=== PATIENT | female | born 1990 | race Caucasian/White ===

== ENCOUNTER 2024-03-14 22:23 | Emergency (ER) | payer BC, SELFPAY ==
[2024-03-14 22:24] VITALS: BMI 29.6
[2024-03-14 22:29] VITALS: BP 125/84
--- NOTE | 2024-03-14 23:33 | ED.GENMED ---
History of Present Illness
General
Chief Complaint: Headache
Source: patient
Exam Limitations: none
Time Seen by Provider: 03/14/24 22:48
History of Present Illness
History of Present Illness:
This is a 33 year old female that comes in with c/o headache. States that she was sick last Friday and had a slight fever. States that she feels it did not even brake 100. States that this continued into Friday. States that since that time she has
had a headache and it seemed to get worse on . States that it seemed to start like a sinus headache as it was in her teeth and cheek and the moved to her forehead. States that she just feels off. Denies any chills, chest pain, SOB, cough,
abd pain, nausea, vomiting, diarrhea, dizziness, urinary burning.
Past History
Past History
ED Past Medical History: None; Negative Asthma, HTN, Hypercholesterolemia or NIDDM
ED Past Surgical History: Other (Deviated septum. )
Social History
Tobacco: Non-smoker
Alcohol: Occasional
Personal:
Living: with family
Review of Systems
Review of Systems
All Other Systems: ROS reviewed and negative except as documented in HPI and ROS
Constitutional: Reports no symptoms; Denies fever (very low grade a week ago on Friday and Friday) or chills
EENT: Reports no symptoms
Respiratory: Reports no symptoms; Denies cough or trouble breathing
Cardiac: Reports no symptoms; Denies chest pain
ABD/GI: Reports no symptoms; Denies abdominal pain, nausea, vomiting or diarrhea
: Reports no symptoms; Denies dysuria, frequency or urgency
Musculoskeletal: Reports no symptoms
Skin: Reports no symptoms
Neurological: Reports headache; Denies dizzy
Psychiatric: Reports no symptoms
Phy Exam
General Physical Exam
General Presentation: mild distress
General age: appears stated age
General Skin: warm and dry
General Habitus: normal
General Mental: alert
General Hydration: appears well hydrated
ENT Exam
ENT Exam: TM's normal, pharynx normal and neck supple
Eye Exam
Eye Exam: EOMI
Cardiovascular Exam
Cardiovascular Exam: regular rate/rhythm, no edema, no murmur and normal peripheral pulses
Pulmonary Exam
Pulmonary Exam: lungs clear, no respiratory distress, no rales, chest non tender, no crackles, no rhonchi, no wheezing and no cough
Gastrointestinal Exam
Gastrointestinal Exam: normal bowel sounds, non tender, soft, no organomegaly, no pulsatile mass and non distended
Musculoskeletal Exam
Musculoskeletal Exam: full ROM and no edema
Skin Exam
Skin Exam: normal color, warm/dry, no rash and no petechia
Psychiatric Exam
Psychiatric Exam: normal mood/affect
Course
Orders/Labs/Results
Orders:
Orders
03/14/24 23:31
0.9% Sodium Chloride 1000 ml [Nss] 1,000 ml IV BOLUS
Acetaminophen [Tylenol] 1,000 mg PO NOW STA
Dexamethasone Sod Phosphate [Decadron] 20 mg IV NOW STA
Diphenhydramine [Benadryl] 25 mg IV NOW STA
Ketorolac [Toradol] 30 mg IV NOW STA
Prochlorperazine [Compazine] 5 mg IV NOW STA
03/14/24 23:32
Test Result ONCE
03/14/24 23:53
COVID-19 Antigen Urgent
Source: Nasal Swab
Complete Blood Count/With Diff Urgent
Comprehensive Metabolic Panel Urgent
HCG, Serum Qualitative Screen Urgent
03/15/24 00:03
CT Head W/o Iv Contrast Urgent
Reason For Exam: headache for a week
Abnormal Lab Results
03/14/24
23:53
RBC 3.59 L 10^6/uL
(4.20-5.40)
Hgb 11.8 L g/dL
(12.0-16.0)
Hct 33.1 L %
(37.0-47.0)
MCH 32.9 H pg
(27.0-31.0)
Abs Immat Gran (auto) 0.1 H 10^3/uL
(0-0.05)
Immature Gran % 1.1 H %
(0-0.5)
03/14/24 23:53
03/14/24 23:53
H/H slightly low, HCG negative. COVID negative.
Vital Signs
Initial and Last Documented VS:
Initial Vital Signs
Temp Pulse Resp BP Pulse Ox
98.5 F 82 16 125/84 97
03/14/24 22:29 03/14/24 22:29 03/14/24 22:29 03/14/24 22:29 03/14/24 22:29
Last Documented Vital Signs
Temp Pulse Resp BP Pulse Ox
98.5 F 68 16 124/86 99
03/14/24 22:29 03/15/24 00:46 03/15/24 00:46 03/15/24 00:46 03/15/24 00:46
MDM/Problems Addressed
Differential Diagnosis Includes:
Headache, Meningitis, COVID
MDM/Problems Addressed:
This is a 33 year old female that comes in with c/o headache. States that last Friday she started with a low grade fever which continued into Friday. States that the headache was dull and then on it seemed to increased. States that she
has had the headache ever since. States that this goes across her forehead.
Will check labs. CT head and medicate for pain.
Back into see patient. States that she is feeling better. Explained that the CT of the head is normal and her sinuses are clear. Patient to increase her water intake to 8-8oz glasses daily. Tylenol 1000mg every 6 hours for pain and alternate with
Ibuprofen 600mg every 6 hours with food. Follow up with the family doctor. Return with any concerns.
Chronic conditions affecting care:
NA
Acute Exacerbation and/or Progression of Chronic Illness:
NA
*Radiology
Radiology exam reviewed: radiology read reviewed (CT head- No acute hemorrhage, herniation or hydrocephalus. NO calvarial fracture. The visualized paranasal sinuses and mastoid air cells are clear. )
*Pulse Oximetry
Patient hypoxic: no
*EKG
Interpreted by ED Provider?: NA
Rate: EKG- N/A
*Orthodontic Band Maker Interpretation
Rate: Orthodontic Band Maker- N/A
*Critical Care Note
Total Time (30-74mins, 75-104mins- exclusive of procedures): Not Applicable
ED Attending Note
-
Portions of this chart may have been created with voice recognition software.� Occasional wrong word or��sound alike� substitutions may have occurred due to the inherent limitations of voice recognition software.
Discharge Plan
Departure
Patient Disposition: Home (Routine Discharge)
Date of Disposition: 03/15/24
Time of Disposition: 01:58
Patient with high blood pressure during this ER visit?: No
Condition: Good
Covid-19: Negative COVID-19
Discharge Problem:
Headache
Instructions: Headache, Adult (DC)
Referrals:
Jus Schroeder DO [Family Provider] - Call in 1-3 days for appt
Activity Restrictions/Additional Instructions:
As discussed, your blood work is normal and your CT is negative for any acute process. Your Sinuses are clear. Please increase your water intake to 8-8oz glasses dialy. Follow up with the family doctor for recheck. You may use Tylenol 1000mg every 6
hours for pain and alternate with Ibuprofen 600mg every 6 hours with food for pain. IF YOU HAVE HAVE ANY OTHER CONCERNS PLEASE RETURN TO THE EMERGENCY ROOM.
Interventions
Interventions:
*Risk Screen - Suicide Last Done: 03/14/24 22:29
*General Assessment Last Done: 03/14/24 22:29
*Neglect/Abuse Screening Last Done: 03/14/24 22:29
ED- Neurological Assessment Last Done: 03/15/24 00:48
Discharge Date and Time
Print Language: INDIAN
[2024-03-14] MEDS: BENADRYL 25 MG IV (23:54)
[2024-03-14] MEDS: COMPAZINE 5 MG IV (23:54)
[2024-03-14] MEDS: DECADRON 20 MG IV (23:54)
[2024-03-14] MEDS: NSS 1000 IV (23:54)
[2024-03-14] MEDS: TORADOL 30 MG IV (23:54)
[2024-03-14] MEDS: TYLENOL 1000 MG PO (23:55)
[2024-03-15 00:22] LABS: HCG, Serum Qualitative Screen Negative
[2024-03-15 00:23] LABS: COVID-19 Antigen Negative (Negative)
[2024-03-15 00:25] LABS: ALT (SGPT) 12 U/L (0-35); AST (SGOT) 18 U/L (14-36); Albumin 4.2 g/dl (3.5-5.0); Alkaline Phosphatase 80 U/L (38-126); Blood Urea Nitrogen 15 mg/dl (7-17); Calcium 9.2 mg/dl (8.4-10.2); Carbon Dioxide 26 mmol/L (22-30); Chloride 106 mmol/L (98-107); Glucose 96 mg/dl (70-99); Potassium 4.2 mmol/L (3.5-5.1); Sodium 138 mmol/L (135-145); Total Bilirubin 0.5 mg/dl (0.2-1.3); Total Protein 6.3 g/dl (6.3-8.2); eGFR > 60.00
[2024-03-15 00:41] LABS: % Basophils 0.5 % (0-2); % Eosinophils 1.2 % (0-6); % Immature Granulocytes 1.1 % (0-0.5); % Lymphocytes 37.1 % (20.5-51.1); % Monocytes 6.8 % (1.7-9.3); % Neutrophils 53.3 % (42.2-75.2); Absolute Eosinophils 0.1 10^3/uL (0-0.7); Absolute Immature Granulocytes 0.1 10^3/uL (0-0.05); Absolute Lymphocytes 2.8 10^3/uL (1.2-3.4); Absolute Monocytes 0.5 10^3/uL (0.1-0.6); Absolute Neutrophils 4.1 10^3/uL (1.4-6.5); Hematocrit 33.1 % (37.0-47.0); Hemoglobin 11.8 g/dL (12.0-16.0); Mean Corp Hgb Conc. 35.6 g/dL (33.0-37.0); Mean Corpuscular Hgb 32.9 pg (27.0-31.0); Mean Corpuscular Volume 92.2 fL (81.0-99.0); Mean Platelet Volume 9.6 fL (7.4-10.4); Nucleated Red Blood Cells % 0 %; Platelet Count 261 10^3/uL (130-400); Red Blood Cell Count 3.59 10^6/uL (4.20-5.40); Red Cell Dist. Width 11.9 % (11.5-14.5); White Blood Cell Count 7.6 10^3/uL (4.8-10.8)
[2024-03-15 00:46] VITALS: BP 124/86
== END 2024-03-15 02:24 | disposition home or self-care (01) ==
LOC: EMR 22:23
PROVIDERS: Clinical Nurse Specialist Family Health; EMERGENCY PHYSICIAN Emergency Medicine; FAMILY PHYSICIAN Family Medicine
DX: R51.9 Headache, unspecified (principal)
CPT/HCPCS: 99284; 96374; 96375; 70450; 80053; 84703; 85025; 87811